=== PATIENT | male | born 1980 | race Caucasian/White ===

== ENCOUNTER 2023-06-11 10:26 | Inpatient (IN) | payer OTHER ==
[2023-06-11] MEDS ORDERED: hydrOXYzine PAMOATE 25 MG CAPSULE (FP) PO PRN (11:12)
[2023-06-11] MEDS ORDERED: ACETAMINOPHEN 325 MG TABLET (FP) PO PRN (11:12)
[2023-06-11] MEDS ORDERED: BENZONATATE 200 MG CAPSULE PO PRN (11:12)
[2023-06-11] MEDS ORDERED: MAGNESIUM HYDROX 2400MG/30ML ORAL SUSPENSION 30 ML CUP PO PRN (11:12)
[2023-06-11] MEDS ORDERED: POLYETHYLENE GLYCOL (HEALTHYLAX) 3350 17 GM PACKET PO PRN (11:12)
[2023-06-11] MEDS ORDERED: guaiFENesin 600 MG TABLET.ER (FP) PO PRN (11:12)
[2023-06-11] MEDS ORDERED: BENZOCAINE/MENTHOL (CHLORASEPTIC ) LOZENGE MM PRN (11:12)
[2023-06-11] MEDS ORDERED: ONDANSETRON *ODT* 4 MG TABLET SL PRN (11:12)
[2023-06-11] MEDS ORDERED: LOPERAMIDE HCL 2 MG CAPSULE PO PRN (11:12)
[2023-06-11] MEDS ORDERED: BISMUTH SUBSALICYLATE 262 MG/15 ML BTL PO PRN (11:12)
[2023-06-11] MEDS ORDERED: DICYCLOMINE HCL 10 MG CAPSULE PO PRN (11:12)
[2023-06-11] MEDS ORDERED: MAG HYDROX/AL HYDROX/SIMETH 30 ML UNIT-DOSE CUP PO PRN (11:12)
[2023-06-11] MEDS ORDERED: IBUPROFEN 400 MG TABLET (FP) PO PRN (11:12)
[2023-06-11] MEDS ORDERED: NICOTINE POLACRILEX 2 MG GUM BUC PRN (11:12)
[2023-06-11] MEDS ORDERED: NALOXONE HCL (KLOXXADO) 8 MG SPRAY NS PRN (11:12)
[2023-06-11] MEDS ORDERED: NALOXONE HCL 0.4 MG/ML VIAL IM PRN (11:12)
[2023-06-11] MEDS ORDERED: IBUPROFEN 600 MG TABLET (FP) PO PRN (11:12)
[2023-06-11] MEDS ORDERED: P-EPHED 60MG/TRIPROLIDI 2.5MG TABLET PO PRN (11:12)
[2023-06-11] MEDS ORDERED: METHOCARBAMOL 500 MG TABLET ONE (11:37)
[2023-06-11] MEDS ORDERED: levETIRAcetam 500 MG TABLET (FP) PO ONE (11:37)
[2023-06-11] MEDS ORDERED: diazePAM 5 MG TABLET ONE (11:37)
[2023-06-11] MEDS: levETIRAcetam 500 MG TABLET (FP) PO SCH ×2 (11:49→22:11)
[2023-06-11] MEDS: METHOCARBAMOL 500 MG TABLET PO PRN ×2 (11:50→22:10)
[2023-06-11] MEDS: diazePAM 5 MG TABLET PO PRN ×2 (11:50→22:11)
[2023-06-11] MEDS ORDERED: cloNIDine HCL 0.1 MG TABLET PO PRN (12:50)
[2023-06-11] MEDS ORDERED: methaDONE HCL 10 MG TABLET (FOR DETOX USE ONLY) PO ONE (12:50)
[2023-06-11 13:42] LABS: POTASSIUM 4.3 mmol/L (3.5-5.1)
[2023-06-11 13:44] LABS: CALCIUM 9.4 mg/dL (8.5-10.1); HEMATOCRIT 39.7 % (35.4-49); HEMOGLOBIN 12.8 GM/dL (11.7-16.9); MCH 30.4 pg (25.7-33.7); MCHC 32.2 g/dl (32.0-35.9); MEAN CELL VOLUME 94.2 fl (80-96); MEAN PLT VOLUME 8.9 fl (7.5-11.1); PLATELET COUNT 263 10^3/uL (134-434); RBC 4.21 M/mm3 (4.00-5.60); RDW 13.9 % (11.9-15.9); WHITE BLOOD COUNT 11.2 K/mm3 (4.0-10.0)
[2023-06-11 13:45] LABS: BLOOD UREA NITROGEN 13.6 mg/dL (7-18)
[2023-06-11 13:46] LABS: ALBUMIN 3.6 g/dl (3.4-5.0)
[2023-06-11 13:48] LABS: CREATININE 0.7 mg/dL (0.55-1.3)
[2023-06-11 13:49] LABS: BILIRUBIN,TOTAL 0.4 mg/dL (0.2-1); TOT PROT 6.6 g/dl (6.4-8.2)
[2023-06-11 14:39] LABS: HIV INTERPRETATION NEGATIVE (NEGATIVE)
[2023-06-11] MEDS: MELATONIN 5 MG TABLETS PO SCH (22:10)
[2023-06-11] MEDS: THIAMINE HCL 100 MG TABLET (FP) PO SCH (22:10)
[2023-06-12] MEDS: diazePAM 5 MG TABLET PO PRN ×4 (08:47→22:54)
[2023-06-12] MEDS: levETIRAcetam 500 MG TABLET (FP) PO SCH ×2 (10:25→22:54)
[2023-06-12] MEDS: PRENATAL VITAMINS W/ FOLIC ACID TABLET (FP) PO SCH (10:25)
[2023-06-12] MEDS: METHOCARBAMOL 500 MG TABLET PO PRN (22:54)
[2023-06-12] MEDS: THIAMINE HCL 100 MG TABLET (FP) PO SCH (22:54)
[2023-06-12] MEDS: MELATONIN 5 MG TABLETS PO SCH (22:54)
[2023-06-13 09:45] LABS: BASO % 0.5 % (0-2.0); EOS % 2.7 % (0-4.5); HEMATOCRIT 40.9 % (35.4-49); HEMOGLOBIN 13.7 GM/dL (11.7-16.9); LYMPH % 19.7 % (8-40); MCH 30.9 pg (25.7-33.7); MCHC 33.5 g/dl (32.0-35.9); MEAN CELL VOLUME 92.4 fl (80-96); MEAN PLT VOLUME 8.8 fl (7.5-11.1); MONO % 7.5 % (3.8-10.2); NEUT % 69.6 % (42.8-82.8); PLATELET COUNT 266 10^3/uL (134-434); RBC 4.43 M/mm3 (4.00-5.60); RDW 13.7 % (11.9-15.9); WHITE BLOOD COUNT 9.2 K/mm3 (4.0-10.0)
[2023-06-13] MEDS ORDERED: methaDONE HCL 10 MG TABLET (FOR DETOX USE ONLY) PO ONE (10:00)
[2023-06-13] MEDS: PRENATAL VITAMINS W/ FOLIC ACID TABLET (FP) PO SCH (10:13)
[2023-06-13] MEDS: levETIRAcetam 500 MG TABLET (FP) PO SCH (10:13)
[2023-06-13] MEDS: diazePAM 5 MG TABLET PO PRN (10:16)
[2023-06-13 13:37] VITALS: BP 105/69; PULSE 68; RESP 16; TEMP 97.7
[2023-06-15] MEDS ORDERED: methaDONE HCL 10 MG TABLET (FOR DETOX USE ONLY) PO ONE (10:00)
== END 2023-06-13 13:29 | disposition left against medical advice (07) | DRG 770 ==
LOC: YASAS 10:26 → Y3N 11:41
PROVIDERS: ADMIT Allergy & Immunology; ATTEND Surgery
PROC: HZ2ZZZZ Detoxification Services for Substance Abuse Treatment (ICD-10-PCS; principal; 2023-06-11)
DX: F11.23 Opioid dependence with withdrawal (principal); F13.20 Sedative, hypnotic or anxiolytic dependence, uncomplicated; F14.10 Cocaine abuse, uncomplicated; F17.290 Nicotine dependence, other tobacco product, uncomplicated; F19.280 Other psychoactive substance dependence with psychoactive substance-induced anxiety disorder; F19.282 Other psychoactive substance dependence with psychoactive substance-induced sleep disorder; Z88.8 Allergy status to other drugs, medicaments and biological substances
CPT/HCPCS: 36415; 71046-TC-FY; 80053; 85025; 85027; 86780; 87389; 87635; 87811